=== PATIENT | female | born 1975 | race Caucasian/White ===

== ENCOUNTER 2024-09-09 22:09 | Emergency (ER) | payer BC ==
[2024-09-09 22:34] VITALS: PULSE 95; RESP 18; TEMP 97.2
[2024-09-09] MEDS ORDERED: Zofran 4 MG/2 ML VIAL ONE (22:36)
[2024-09-09] MEDS ORDERED: Hydromorphone 1 mg/ml Injection ONE (22:37)
[2024-09-09] MEDS ORDERED: Sodium Chloride 0.9% 1000 ML 1,000 ML ONE (22:37)
[2024-09-09] MEDS: Hydromorphone 1 mg/ml Injection IV ONE (22:38)
[2024-09-09] MEDS: Sodium Chloride 0.9% 1000 ML 1,000 ML IV STA (22:38)
[2024-09-09] MEDS: Zofran 4 MG/2 ML VIAL IV ONE (22:39)
[2024-09-09 22:42] LABS: Absolute Neutrophil Ct (ANC) 5.04 x10^3/uL (1.56-6.13); BASOPHIL % 0.3 % (0.1-1.2); Basophil (Absolute #) 0.03 x10^3/uL (0.01-0.08); Eosinophil % 1.7 % (0.7-5.8); Eosinophil (Absolute #) 0.17 x10^3/uL (0.04-0.36); Hematocrit 33.7 % (34.1-44.9); Hemoglobin 10.3 g/dL (11.2-15.7); IMMATURE GRAN # 0.03 x10^3u/L (0.001-0.031); IMMATURE GRAN % 0.3 % (0.001-0.429); Lymphocyte (Absolute #) 3.32 x10^3/uL (1.18-3.74); Lymphocytes % 33.9 % (19.3-51.7); Mean Cell Volume 79.9 fL (79.4-94.8); Mean Corpuscular Hemoglobin 24.4 pg (25.6-32.2); Mean Corpuscular Hgb Concent. 30.6 g/dL (32.2-35.5); Mean Platelet Volume 10.9 fL (9.4-12.3); Monocytes % 12.3 % (4.7-12.5); Neutrophil % 51.5 % (34.0-71.1); Platelet Count 285 x10^3/uL (182-369); Red Blood Count 4.22 x10^6/uL (3.93-5.22); Red Cell Distribution Width 14.6 % (11.7-14.4); White Blood Count 9.8 x10^3/uL (3.98-10.04)
[2024-09-09 22:52] LABS: HCG SERUM TEST NEGATIVE (NEGATIVE)
[2024-09-09 22:55] LABS: ALBUMIN 4.6 g/dL (3.5-5.0); ANION GAP 16.4 MEQ/L (5-15); BILIRUBIN,TOTAL 0.4 mg/dL (0.2-1.3); Calcium 10.8 mg/dL (8.4-10.2); Creatinine 1 0.87 mg/dL (0.52-1.04); EST GLOMERULAR FILTRATION RATE 81.6 ML/MIN; Potassium 3.9 mmol/L (3.5-5.1); Total Protein 7.2 g/dL (6.3-8.2)
[2024-09-09] MEDS ORDERED: TORAdol 30 mg Injection ONE (23:14)
[2024-09-09] MEDS: TORAdol 30 mg Injection IV ONE (23:15)
[2024-09-09 23:23] VITALS: O2SAT 100
--- NOTE | 2024-09-10 00:04 | ERPHSYRPT ---
- History of Present Illness Time Seen by Provider: 09/09/24 22:13 Historian: patient, family Exam Limitations: no limitations Patient Subjective Stated Complaint: Pt. states, "My lower left side of my abdomen is hurting so bad." Triage Nursing Assessment: Pt. transferred to bed from w/c with minimal assist. A&Ox4, Skin P/W/D, Resp rapid, pt. restless moaning in pain. Tearful. BS very hypoactive, abdomen soft, tender on left lower quad. Physician History: 49-year-old female presented in the ER with complaint of sudden onset left lower quadrant/pelvic area pain sharp shooting severe, aggravated with minimal movem ents and unable to find a comfortable spot. Reports associated nausea but no vomiting. Denies any urinary complaints. No history of kidney stones. No fever or chills reported. Does have history of ovarian cyst rupture. Allergies/Adverse Reactions: psyllium [From Metamucil] Allergy (Mild, Verified 09/09/24 22:18) Home Medications: Bisacodyl [Women's Laxative] 5 mg PO 09/09/24 [History] Ferrous Sulfate 324 mg PO 09/09/24 [History] Levothyroxine Sodium 09/09/24 [History] Phentermine HCl 37.5 mg PO 09/09/24 [History] Hx Tetanus, Diphtheria Vaccination/Date Given: No Hx Influenza Vaccination/Date Given: No Hx Pneumococcal Vaccination/Date Given: No Immunizations Up to Date: No Travel Risk - International Travel Have you traveled outside of the country in past 3 weeks: No - Emerging Infectious Disease Are you exhibiting symptoms associated with any current EIDs: No - Review of Systems Constitutional: No Symptoms Ears, Nose, & Throat: No Symptoms Respiratory: No Symptoms Cardiac: No Symptoms Abdominal/Gastrointestinal: Abdominal Pain, Nausea Genitourinary Symptoms: No Symptoms Musculoskeletal: No Symptoms Skin: No Symptoms Neurological: No Symptoms Endocrine: No Symptoms - Past Medical History Pertinent Past Medical History: Yes Neurological History: No Pertinent History ENT History: No Pertinent History Cardiac History: No Pertinent History Respiratory History: No Pertinent History Endocrine Medical History: Hypothyroidism Musculoskeletal History: No Pertinent History GI Medical History: No Pertinent History History: No Pertinent History Psycho-Social History: No Pertinent History Female Reproductive Disorders: Fibroids Other Medical History: Constipation - Past Surgical History Past Surgical History: Yes Neuro Surgical History: No Pertinent History Cardiac: No Pertinent History Respiratory: No Pertinent History Gastrointestinal: No Pertinent History Genitourinary: No Pertinent History Musculoskeletal: No Pertinent History Female Surgical History: Other Other Surgical History: ruptured ovarian cyst in 1995 - Female History Hx Last Menstrual Period: Last wednesday Hx Now: No - Social History Smoking Status: Never smoker Exposure to second hand smoke: No Drug Use: none - Social Determinants of Health Will the patient participate in the screening: Declined to provide - Nursing Vital Signs Nursing Vital Signs: Initial Vital Signs Temperature 97.2 F 09/09/24 22:21 Pulse Rate 95 H 09/09/24 22:21 Respiratory Rate 18 09/09/24 22:21 Blood Pressure 115/85 09/09/24 22:21 O2 Sat by Pulse Oximetry 98 09/09/24 22:21 Pain Scale Pain Intensity 10 - Physical Exam General Appearance: mild distress Eye Exam: PERRL/EOMI Ears, Nose, Throat Exam: normal ENT inspection Neck Exam: normal inspection, supple, full range of motion Respiratory Exam: normal breath sounds, lungs clear Cardiovascular Exam: regular rate/rhythm, normal heart sounds Gastrointestinal/Abdomen Exam: tenderness, guarding (Left lower quadrant) Back Exam: normal inspection, normal range of motion Extremity Exam: normal inspection, normal range of motion Neurologic Exam: alert, oriented x 3, cooperative Skin Exam: normal color SpO2 Interpretation: normal SpO2: 100 O2 Delivery: Room Air Ordered Tests: Active Orders 24 hr Category Date Time Status IV Insertion STAT Care 09/09/24 22:34 Active NPO (ED) STAT Care 09/09/24 22:34 Active ABDOMEN AND PELVIS W CONTRAST [CT] Stat Exams 09/09/24 22:34 Completed CBC W DIFF Stat Lab 09/09/24 22:40 Completed CMP Stat Lab 09/09/24 22:40 Completed HCG QUALITATIVE, SERUM Stat Lab 09/09/24 22:41 Completed LIPASE Stat Lab 09/09/24 22:40 Completed Lactic Acid Stat Lab 09/09/24 22:34 Completed UA W/RFX UR CULTURE Stat Lab 09/09/24 00:10 Completed Medication Summary Discontinued Medications Generic Name Dose Route Start Last Admin Trade Name Freq PRN Reason Stop Dose Admin Hydrocodone Bitart/Acetaminophen 2 tab 09/10/24 00:37 Hydrocodone/Apap 5/325 1 Tab Tablet PO 09/10/24 00:38 SENT HOME W/ PATIENT ONE Hydromorphone HCl 1 mg 09/09/24 22:34 09/09/24 22:38 Hydromorphone 1 Mg/1ml Inj IV 09/09/24 22:35 1 mg STAT ONE Administration Hydromorphone HCl Confirm 09/09/24 22:37 Hydromorphone 1 Mg/1ml Inj Administered 09/09/24 22:38 Dose 1 mg .ROUTE .STK-MED ONE Sodium Chloride 1,000 mls @ 999 mls/hr 09/09/24 22:34 09/09/24 22:38 Sodium Chloride 0.9% 1000 Ml IV 09/09/24 23:34 999 mls/hr .Q1H1M STA Administration Sodium Chloride Confirm 09/09/24 22:37 Sodium Chloride 0.9% 1000 Ml Administered 09/09/24 22:38 Dose 1,000 mls @ ud .ROUTE .STK-MED ONE Ketorolac Tromethamine 30 mg 09/09/24 23:13 09/09/24 23:15 Ketorolac Tromethamine 30 Mg/Ml Inj IV 09/09/24 23:14 30 mg STAT ONE Administration Ketorolac Tromethamine Confirm 09/09/24 23:14 Ketorolac Tromethamine 30 Mg/Ml Inj Administered 09/09/24 23:15 Dose 30 mg .ROUTE .STK-MED ONE Ondansetron HCl 4 mg 09/09/24 22:34 09/09/24 22:39 Ondansetron Hcl 4 Mg/2 Ml Vial IV 09/09/24 22:35 4 mg STAT ONE Administration Ondansetron HCl Confirm 09/09/24 22:36 Ondansetron Hcl 4 Mg/2 Ml Vial Administered 09/09/24 22:37 Dose 4 mg .ROUTE .STK-MED ONE Tamsulosin HCl 0.4 mg 09/10/24 00:29 09/10/24 00:37 Tamsulosin Hcl 0.4 Mg Cap PO 09/10/24 00:30 0.4 mg ONCE STA Administration Lab/Rad Data: Laboratory Result Diagrams 09/09/24 22:40 09/09/24 22:40 Laboratory Results 09/09/24 09/09/24 09/09/24 Range/Units 22:41 22:40 22:40 WBC 9.8 (3.98-10.04) x10^3/uL RBC 4.22 (3.93-5.22) x10^6/uL Hgb 10.3 L (11.2-15.7) g/dL Hct 33.7 L (34.1-44.9) % MCV 79.9 (79.4-94.8) fL MCH 24.4 L (25.6-32.2) pg MCHC 30.6 L (32.2-35.5) g/dL RDW 14.6 H (11.7-14.4) % Plt Count 285 (182-369) x10^3/uL MPV 10.9 (9.4-12.3) fL Gran % 51.5 (34.0-71.1) % Immature Gran % (Auto) 0.3 (0.001-0.429) % Nucleat RBC Rel Count 0.0 (0.00-0.2) % Eos # (Auto) 0.17 (0.04-0.36) x10^3/uL Immature Gran # (Auto) 0.03 (0.001-0.031) x10^3u/L Absolute Lymphs (auto) 3.32 (1.18-3.74) x10^3/uL Absolute Monos (auto) 1.20 H (0.24-0.86) x10^3/uL Absolute Nucleated RBC 0.00 (0.00-0.012) x10^3u/L Lymphocytes % 33.9 (19.3-51.7) % Monocytes % 12.3 (4.7-12.5) % Eosinophils % 1.7 (0.7-5.8) % Basophils % 0.3 (0.1-1.2) % Absolute Granulocytes 5.04 (1.56-6.13) x10^3/uL Basophils # 0.03 (0.01-0.08) x10^3/uL Sodium 139 (135-145) mmol/L Potassium 3.9 (3.5-5.1) mmol/L Chloride 105 (98-107) mmol/L Carbon Dioxide 22 (22-30) mmol/L Anion Gap 16.4 H (5-15) MEQ/L BUN 16 (7-17) mg/dL Creatinine 0.87 (0.52-1.04) mg/dL Estimated GFR 81.6 ML/MIN Glucose 97 (74-106) mg/dL Lactic Acid (0.4-2.0) Calcium 10.8 H (8.4-10.2) mg/dL Total Bilirubin 0.40 (0.2-1.3) mg/dL AST 28 (14-36) U/L ALT 23 (0-35) U/L Alkaline Phosphatase 82 (38-126) U/L Serum Total Protein 7.2 (6.3-8.2) g/dL Albumin 4.6 (3.5-5.0) g/dL Lipase 56 (23-300) U/L Serum HCG, Qual NEGATIVE (NEGATIVE) Urine Color (Yellow) Urine Appearance (Clear) Urine pH (4.6-8.0) Ur Specific [place] (1.005-1.030) Urine Protein (Negative) Urine Glucose (UA) (Negative) mg/dL Urine Ketones (Negative) Urine Blood (Negative) Urine Nitrite (Negative) Urine Bilirubin (Negative) Urine Urobilinogen (0.2) mg/dL Ur Leukocyte Esterase (Negative) U Hyaline Cast (Auto) (0-2) /LPF Urine Microscopic RBC (0-5) /HPF Urine Microscopic WBC (0-5) /HPF Ur Epithelial Cells (None Seen) /HPF Urine Bacteria (None Seen) /HPF Urine Culture Reflexed (NO) 09/09/24 09/09/24 Range/Units 22:34 00:10 WBC (3.98-10.04) x10^3/uL RBC (3.93-5.22) x10^6/uL Hgb (11.2-15.7) g/dL Hct (34.1-44.9) % MCV (79.4-94.8) fL MCH (25.6-32.2) pg MCHC (32.2-35.5) g/dL RDW (11.7-14.4) % Plt Count (182-369) x10^3/uL MPV (9.4-12.3) fL Gran % (34.0-71.1) % Immature Gran % (Auto) (0.001-0.429) % Nucleat RBC Rel Count (0.00-0.2) % Eos # (Auto) (0.04-0.36) x10^3/uL Immature Gran # (Auto) (0.001-0.031) x10^3u/L Absolute Lymphs (auto) (1.18-3.74) x10^3/uL Absolute Monos (auto) (0.24-0.86) x10^3/uL Absolute Nucleated RBC (0.00-0.012) x10^3u/L Lymphocytes % (19.3-51.7) % Monocytes % (4.7-12.5) % Eosinophils % (0.7-5.8) % Basophils % (0.1-1.2) % Absolute Granulocytes (1.56-6.13) x10^3/uL Basophils # (0.01-0.08) x10^3/uL Sodium (135-145) mmol/L Potassium (3.5-5.1) mmol/L Chloride (98-107) mmol/L Carbon Dioxide (22-30) mmol/L Anion Gap (5-15) MEQ/L BUN (7-17) mg/dL Creatinine (0.52-1.04) mg/dL Estimated GFR ML/MIN Glucose (74-106) mg/dL Lactic Acid 1.6 (0.4-2.0) Calcium (8.4-10.2) mg/dL Total Bilirubin (0.2-1.3) mg/dL AST (14-36) U/L ALT (0-35) U/L Alkaline Phosphatase (38-126) U/L Serum Total Protein (6.3-8.2) g/dL Albumin (3.5-5.0) g/dL Lipase (23-300) U/L Serum HCG, Qual (NEGATIVE) Urine Color Yellow (Yellow) Urine Appearance Clear (Clear) Urine pH 5.0 (4.6-8.0) Ur Specific [place] >=1.030 A (1.005-1.030) Urine Protein Negative (Negative) Urine Glucose (UA) Negative (Negative) mg/dL Urine Ketones Negative (Negative) Urine Blood Moderate A (Negative) Urine Nitrite Negative (Negative) Urine Bilirubin Negative (Negative) Urine Urobilinogen 0.2 (0.2) mg/dL Ur Leukocyte Esterase Negative (Negative) U Hyaline Cast (Auto) NONE SEEN (0-2) /LPF Urine Microscopic RBC 11-20 A (0-5) /HPF Urine Microscopic WBC 3-5 (0-5) /HPF Ur Epithelial Cells None Seen (None Seen) /HPF Urine Bacteria None Seen (None Seen) /HPF Urine Culture Reflexed NO (NO) - Progress Progress: improved Progress Note: 09/10/24 00:38 49-year-old is evaluated in the ER for 1 hour history of left lower quadrant pain order to severe sharp with tenderness and guarding. She is given fluids and symptomatic treatment with Dilaudid and Toradol, on reevaluation she is feeling much better. Workup showed normal white count, fairly unremarkable chemistries, normal renal functions, no UTI. CT abdomen pelvis showed 2.5 mm left vesica ureteral junction stone with mild hydroureteronephrosis. No pyelonephritis. I do not think patient needs antibiotics. I have given her Flomax here. I would continue with pain medication, Flomax to go home and outpatient urology follow-up recommended. Discussed signs symptoms of worsening needing return to ER which she seems understanding. Stable for discharge. Counseled pt/family regarding: lab results, diagnosis, need for follow-up, rad results Medical Desision Making - Independent Historian Additional History obtained from: Spouse - Diagnostic Testing Diagnostic test were ordered, analyzed, and reviewed by me: Yes Radiological Interpretation: Reviewed by me - Risk of complications The pt has a mod risk of morbidity or mortality based on: Need for prescription drug management - Departure Departure Disposition: Home Clinical Impression: Ureterolithiasis Condition: Stable Critical Care Time: No Referrals: FLYNN ARRIETA NP [Primary Care Provider] - Follow up with PCP 1 day SAE WALKER [NON-STAFF PHY W/O PRIVILEGES] - Follow up/PCP as directed (Call for appointment for reevaluation on Wednesday morning) Instructions: Kidney stones in adults - ED discharge instructions Additional Instructions: Take ibuprofen along with [place] as needed for pain. Drink plenty of fluids to keep yourself well-hydrated. Follow-up with urology for reevaluation. Return to ER for intractable pain/vomiting/fever chills/difficulty urination etc. Prescriptions: Hydrocodone/Acetaminophen [Hydrocodone-Acetamin 5-325 mg] 1 tab PO Q6HPRN PRN 3 Days #10 tablet MDD 4 PRN Reason: Pain Ibuprofen 600 mg PO Q6HPRN PRN 10 Days #20 tablet PRN Reason: Pain Tamsulosin HCl 0.4 mg [Flomax 0.4 MG] 0.4 mg PO DAILY #30 cap
[2024-09-10 00:22] LABS: Appearance Clear (Clear); Bacteria None Seen /HPF (None Seen); Bilirubin Negative (Negative); Blood Moderate (Negative); Epithelial Cells None Seen /HPF (None Seen); Glucose, Urine Negative (Negative); Hyaline Casts NONE SEEN /LPF (0-2); Ketones Negative (Negative); Leukocyte Esterase Negative (Negative); Nitrite Negative (Negative); Protein,Urine Dip Negative (Negative); Specific Gravity >=1.030 (1.005-1.030); Urobilinogen 0.2 mg/dL (0.2)
--- NOTE | 2024-09-10 00:27 | XRAY ---
CLINICAL HISTORY: LLQ Pain, torsion/stone COMPARISON: None. TECHNIQUE: CT of the abdomen and pelvis was performed, with the following protocol: axial images, and reconstructed coronal and sagittal images. No intravenous contrast was administered. One of the following dose reduction techniques was utilized for this exam: Automated exposure control, adjustment of the mA and/or kV according to patient size, and use of iterative reconstruction. 80 CC Isovue 370 was given as an IV contrast. FINDINGS: Abdomen: Liver: Normal in size, and density. No focal lesions, cysts, or masses were identified. Gallbladder and Biliary System: The gallbladder is normal in size and shape. No wall thickening, pericholecystic fluid, or gallstones were identified. Pancreas: Pancreatic head, body, and tail are visualized and appear normal in size and density. No pancreatic masses or calcifications were noted. Spleen: Old calcified granulomas in the spleen. Normal size. Kidneys and Adrenal Glands: A 2.5 mm calculus at left vesicoureteric junction, resulting in left hydroureteronephrosis. Both kidneys are normal in size, shape, and position. No renal calculi or hydronephrosis. Adrenal glands are unremarkable. Pelvis: Urinary Bladder: Normal in contour and wall thickness. Uterus and adnexa appear unremarkable. Multiple phleboliths in the pelvis. Peritoneal and Retroperitoneal Structures: No free fluid or abnormal fluid collections were identified within the abdomen or pelvis. No lymphadenopathy was noted. Bowel: Uncomplicated colonic diverticulosis noted. The visualized bowel loops are normal in caliber and appearance. No evidence of bowel obstruction or wall thickening. Appendix appears unremarkable. Bones and Soft Tissues: Degenerative changes in lumbar spine. IMPRESSION: 1. A 2.5 mm calculus at left vesicoureteric junction, resulting in left mild hydroureteronephrosis. 2. Uncomplicated colonic diverticulosis. 3. 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 [facility] ER was called at [phone] at 11:21 PM [employer]OR[employer] RECEIPT POSTER, 09/09/2023 and Kirsten(nurse) was informed regarding the presence of Significant Medical Findings in the report. Electronically Signed by: Too Perkins MD. (09/10/2024 00:23:32 EST)
[2024-09-10] MEDS: Flomax 0.4 MG PO STA (00:37)
[2024-09-10] MEDS ORDERED: Flomax 0.4 MG ONE (00:37)
[2024-09-10] MEDS ORDERED: NORCO 5/325 MG ONE (00:39)
[2024-09-10] MEDS: NORCO 5/325 MG PO ONE (00:39)
[2024-09-10 00:49] VITALS: BP 102/61
== END 2024-09-10 00:59 | disposition home or self-care (01) ==
LOC: ED 22:09
DX: N13.2 Hydronephrosis with renal and ureteral calculous obstruction (principal); R10.32 Left lower quadrant pain; R11.0 Nausea; Z79.891 Long term (current) use of opiate analgesic; Z79.899 Other long term (current) drug therapy
CPT/HCPCS: 36415; 74177; 80053; 81001; 83605; 83690; 84703; 85025; 96374; 96375; 99284; J1171; J1885; J2405; A9270-GY

== ENCOUNTER 2024-10-17 06:57 | Day surgery (SDC) | payer BC ==
[2024-10-17] MEDS ORDERED: celeBREX 100 MG PO ONE (07:03)
[2024-10-17 07:11] LABS: HCG URINE TEST NEGATIVE (NEGATIVE)
[2024-10-17] MEDS: CEFAZOLIN 2 GM/100 ML NaCl 2 GM/100 ML IVPB IV SCH (07:16)
[2024-10-17] MEDS: Lactated Ringers 1,000 ML IV ONE (07:16)
[2024-10-17] MEDS: NEURONTIN PO ONE (07:16)
[2024-10-17] MEDS: TYLENOL EXTRA STRENGTH 500 MG PO ONE (07:16)
[2024-10-17] MEDS: Decadron 4 MG PO ONE (07:16)
[2024-10-17 07:21] VITALS: RESP 16
[2024-10-17] MEDS ORDERED: Sodium Chloride 0.9% 1000 ML 1,000 ML ONE (09:31)
[2024-10-17] MEDS ORDERED: TORAdol 30 mg Injection ONE (09:53)
[2024-10-17] MEDS ORDERED: Zofran 4 MG/2 ML VIAL ONE (09:53)
[2024-10-17] MEDS ORDERED: propofoL IV ONE (09:53)
[2024-10-17 10:47] VITALS: TEMP 96.7
[2024-10-17 10:59] VITALS: BP 108/65; PULSE 65; O2SAT 98
--- NOTE | 2024-10-18 11:25 | OP ---
SURGERY DATE/TIME: 10/17/2024 [id number] PREOPERATIVE DIAGNOSIS: Menorrhagia. POSTOPERATIVE DIAGNOSIS: Menorrhagia. PROCEDURE: Hysteroscopy, dilation and curettage with endometrial ablation using NovaSure. SURGEON: Jerald Ortega D.O. CONVICT GUARD: Elin Santo. ANESTHESIA: General. ESTIMATED BLOOD LOSS: Minimal. COMPLICATIONS: None. FINDINGS: The risks, benefits, indications, and alternatives of the procedure were reviewed with the patient prior to the procedure. Patient understood the risk of infection, bleeding, bowel injury, bladder injury, uterine perforation, pelvic infection, thromboembolic disorder associated with the surgery and desires to have the surgery as a possible means to alleviate her current medical condition. DESCRIPTION OF PROCEDURE AND FINDINGS: At this point, patient was taken to the operating room, given general sedation, placed in the dorsal lithotomy position, prepped and draped in the usual sterile fashion. A weighted speculum was then placed in the patient's vagina, and the cervix was then grasped with a single tooth tenaculum where endocervical dilators were advanced through the endocervical canal as a means to dilate the cervix. At this point, a 5 mm hysteroscope was then placed in through the cervical region toward the fundal region where visualization appeared to be within normal limits with no gross abnormalities that were noted. At this point, the hysteroscope was removed and the curette was then placed into the fundus of the uterus and curettage was performed in all quadrants of the uterus, retrieving a mild to moderate amount of tissue. From this point, hemostasis was obtained. At this point, after completion of the curettage, the NovaSure instrument was then taken and with a length of 6.5 cm was taken to the fundal region, retracted across 1 cm and engaged with the width of 12.6 cm, and the instrument was turned on for an ablative time of 1 minute and 12 seconds. After complete ablation, the instrument was then disengaged from the uterine cavity, removed, and was done so without complication. From this point, all instruments were removed from the patient's vaginal region. The patient was then taken out of the dorsal lithotomy position, was taken out of anesthesia, was taken to the recovery room in stable condition. All instruments and laps were accounted for x2.
== END 2024-10-17 11:15 | disposition home or self-care (01) ==
LOC: SDC 06:57
PROVIDERS: ATTEND Obstetrics & Gynecology
DX: N92.0 Excessive and frequent menstruation with regular cycle (principal)
CPT/HCPCS: 58563; 81025; J0690; J1885; J2405; J2704; A9270-GY